=== PATIENT | male | born 1980 | race Caucasian/White ===

== ENCOUNTER 2018-07-18 08:34 | Emergency (ER) | payer BC ==
[2018-07-18 08:54] VITALS: BP 155/82
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
== END 2018-07-18 10:01 | disposition home or self-care (01) ==
LOC: UCCORT 08:34
DX: M51.26 Other intervertebral disc displacement, lumbar region (principal); M54.17 Radiculopathy, lumbosacral region; Z88.6 Allergy status to analgesic agent; Z87.891 Personal history of nicotine dependence
CPT/HCPCS: 72110; 99201; G0463